=== PATIENT | female | born 1970 | race Caucasian/White ===

== ENCOUNTER 2019-09-11 06:25 | Emergency (ER) | payer BC ==
[2019-09-11] MEDS ORDERED: SODIUM CHLORIDE 0.9% 1,000 ML IV STA ×2 (06:39)
[2019-09-11] MEDS ORDERED: ASPIRIN 81 MG PO STA (07:17)
[2019-09-11] MEDS ORDERED: KETOROLAC 30 MG/ML 1 ML VIAL IVP STA (07:17)
[2019-09-11 07:24] LABS: Basophils # (A) 0.1 k/uL (0-0.2); Basophils % (A) 1 %; Eosinophils # (A) 0.3 k/uL (0-0.7); Eosinophils % (A) 5 %; HCT 38.1 % (34.0-46.0); HGB 12.7 gm/dL (11.4-16.0); Lymphocytes # (A) 1.5 k/uL (1.0-4.8); Lymphocytes % (A) 23 %; MCH 28.6 pg (25.0-35.0); MCHC 33.4 g/dL (31.0-37.0); MCV 85.7 fL (80.0-100.0); Mean Platelet Volume 6.6; Monocytes # (A) 0.4 k/uL (0-1.0); Monocytes % (A) 6 %; Neutrophils # (A) 4.1 k/uL (1.3-7.7); Neutrophils % (A) 63 %; Platelet Count 282 k/uL (150-450); RBC 4.45 m/uL (3.80-5.40); RDW 14.2 % (11.5-15.5); WBC 6.6 k/uL (3.8-10.6)
--- NOTE | 2019-09-11 07:25 | ED ---
Chest Pain HPI - General Chief Complaint: Chest Pain Stated Complaint: Chest Pain/Nausea Time Seen by Provider: 09/11/19 06:39 Source: patient, RN notes reviewed, old records reviewed Mode of arrival: ambulatory Limitations: no limitations - History of Present Illness Initial Comments: Patient's 49-year-old female presents emergency room today with onset of chest pain, nausea 5 AM today. She reports it feels a discomfort on her chest. She states at that time she also had a warm flushed feeling and was somewhat diaphoretic. Patient reports that she's had no specific fevers or chills, or cough. Patient states that she states her pain is now a 5 out of 10. Patient denies any previous cardiac history. Nonsmoker. - Related Data Home Medications Medication Instructions Recorded Confirmed Diclofenac Sodium 50 mg PO BID 09/11/19 09/11/19 Multivitamins, Thera [Multivitamin 1 tab PO DAILY 09/11/19 09/11/19 (formulary)] Allergies Allergy/AdvReac Type Severity Reaction Status Date / Time ciprofloxacin [From Cipro] Allergy Rash/Hives Verified 09/11/19 09:07 sulfamethoxazole Allergy Rash/Hives Verified 09/11/19 09:07 [From Bactrim] trimethoprim [From Bactrim] Allergy Rash/Hives Verified 09/11/19 09:07 Review of Systems ROS Statement: Those systems with pertinent positive or pertinent negative responses have been documented in the HPI. ROS Other: All systems not noted in ROS Statement are negative. EKG Findings - EKG Comments: EKG Findings:: EKG performed at 649 shows normal sinus rhythm normal EKG. Ventricular rate of 94 beats were minute. OK interval is 154 ms. QRS duration is 80 ms. QT QTc is 368/460 ms. Past Medical History Past Medical History: No Reported History History of Any Multi-Drug Resistant Organisms: None Reported Past Surgical History: Section Past Psychological History: No Psychological Hx Reported Smoking Status: Never smoker Past Alcohol Use History: None Reported Past Drug Use History: None Reported General Exam - General Exam Comments Initial Comments: 49-year-old female. Alert and oriented. No distress. General: Well appearing, well nourished, in no distress. Oriented x 3, normal mood and affect . Ambulating without difficulty. Skin: Good turgor, no rash, unusual bruising or prominent lesions Hair: Normal texture and distribution. HEENT: Head: Normocephalic, atraumatic, no visible or palpable masses, depressions, or scaring. Eyes: Visual acuity intact, conjunctiva clear, sclera non-icteric, EOM intact, PERRL. Ears: EACs clear, TMs translucent & cone of light visualized. hearing intact. Nose: No external lesions, mucosa non-inflamed, septum and turbinates normal Mouth: Mucous membranes moist, no mucosal lesions. Teeth/Gums: No obvious caries or periodontal disease. No gingival inflammation or significant resorption. Pharynx: Mucosa non-inflamed, no tonsillar hypertrophy or exudate Neck: Supple, without lesions, bruits, or adenopathy, thyroid non-enlarged and non-tender Heart: No cardiomegaly or thrills; regular rate and rhythm, no murmur or gallop Lungs: Clear to auscultation and percussion Abdomen: Bowel sounds normal, no tenderness, organomegaly, masses, or hernia Extremities: No amputations or deformities, cyanosis, edema or varicosities, peripheral pulses intact Musculoskeletal: Normal gait and station. No misalignment, asymmetry, crepitation, defects, tenderness, masses, effusions, decreased range of motion, instability, atrophy or abnormal strength or tone in the head, neck, spine, ribs, pelvis or extremities. Neurologic: CN 2-12 normal. Sensation to pain, touch, and proprioception normal. DTRs normal in upper and lower extremities. No pathologic reflexes. Psychiatric: Oriented X3, intact recent and remote memory, judgment and insight, normal mood and affect. Limitations: no limitations Course Vital Signs 09/11/19 09/11/19 09/11/19 06:32 09:03 12:07 Temperature 98.4 F 99.0 F Pulse Rate 104 H 91 94 Respiratory 20 18 18 Rate Blood Pressure 152/86 141/83 149/75 O2 Sat by Pulse 97 97 95 Oximetry Chest Pain MDM - MDM 49-year-old female presents today for evaluation for chest pain. Limited some nausea at the same time. Symptoms started before prior to arrival. EKG initial troponin are negative. Patient has subsequent troponin and was continually negative. Patient's blood work otherwise are complete her normal chest x-ray. Discussed with patient's description of pain I am concerned for ACS symptoms. I discussed the Patient should be admitted to the hospital for further evaluation and consultation with equity research analyst. She states she has to go to case picker her son. I discussed she has any further pain or symptoms she can return the Patient will be signing out AGAINST MEDICAL ADVICE. Patient is agreeable to this plan. Discussed proper follow-up with PCP. Disposition Clinical Impression: Chest pain Disposition: HOME SELF-CARE Condition: Good Instructions (If sedation given, give patient instructions): Chest Pain (ED) Additional Instructions: Patient advised to follow-up promptly with your primary care physician. Return to the emergency department if any alarming signs or symptoms occur. Return to emergency department if there is any trouble breathing, further chest pain or syncopal episodes. Is patient prescribed a controlled substance at d/c from ED?: No Referrals: Nonstaff,Physician [Primary Care Provider] - 1-2 days Time of Disposition: 11:54
[2019-09-11 07:34] LABS: African American GFR (CKD) >90 (>60 ml/min/1.73 sqM); Amylase <30 U/L (30-110); Anion Gap 10 mmol/L; Blood Urea Nitrogen 17 mg/dL (7-17); Calcium 9.3 mg/dL (8.4-10.2); Carbon Dioxide 21 mmol/L (22-30); Chloride 107 mmol/L (98-107); Glucose 102 mg/dL (74-99); Sodium 138 mmol/L (137-145); Total Bilirubin 0.7 mg/dL (0.2-1.3)
[2019-09-11 07:41] LABS: INR 0.8 (<1.2); Prothrombin Time 9.3 sec (9.0-12.0)
[2019-09-11 07:44] LABS: ALT 47 U/L (9-52); AST 49 U/L (14-36); Albumin 4.1 g/dL (3.5-5.0); Magnesium 1.8 mg/dL (1.6-2.3); Potassium 5.3 mmol/L (3.5-5.1); Total Protein 7.8 g/dL (6.3-8.2)
[2019-09-11 07:45] LABS: Alkaline Phosphatase 89 U/L (38-126)
[2019-09-11 07:46] LABS: Partial Thromboplastin Time 18.5 sec (22.0-30.0)
--- NOTE | 2019-09-11 08:29 | XR ---
EXAMINATION TYPE: XR chest 2V DATE OF EXAM: 09/11/2019 HISTORY: Chest Pain. REFERENCE: NONE. FINDINGS: The lungs are clear. Pleural space are clear. The heart is not enlarged. IMPRESSION: NO ACTIVE INTRATHORACIC DISEASE.
[2019-09-11 09:04] VITALS: RESP 18
[2019-09-11 12:13] VITALS: BP 149/75; PULSE 94; TEMP 99
== END 2019-09-11 12:07 | disposition home or self-care (01) ==
LOC: EC 06:25
DX: R07.89 Other chest pain (principal); R11.0 Nausea; R61 Generalized hyperhidrosis; Z88.1 Allergy status to other antibiotic agents; Z88.2 Allergy status to sulfonamides; Z53.8 Procedure and treatment not carried out for other reasons; Z53.20 Procedure and treatment not carried out because of patient's decision for unspecified reasons
CPT/HCPCS: 36415; 71046; 80053; 82150; 83690; 83735; 83880; 84484; 85025; 85610; 85730; 93005; 96360; 96361; 99285